=== PATIENT | female | born 1990 | race Two or more races ===

== ENCOUNTER 2019-01-15 09:16 | Outpatient (CLI) | payer OTHER | END 2019-01-15 09:26 | disposition home or self-care (01) | LOC: SONOGRAMA 09:16 → MAMO-SONO 09:45 | DX: Z34.02 Encounter for supervision of normal first pregnancy, second trimester (principal) ==

== ENCOUNTER 2019-03-28 13:36 | Outpatient (CLI) | payer OTHER | END 2019-03-28 13:40 | disposition home or self-care (01) | LOC: SONOGRAMA 13:36 | DX: Z34.00 Encounter for supervision of normal first pregnancy, unspecified trimester (principal) ==

== ENCOUNTER 2019-04-11 11:58 | Inpatient (IN) | payer OTHER ==
[~2019-04-11] VITALS: Ht 152.4 cm; Wt 244.0 kg
[2019-04-19] MEDS ORDERED: PRENATABS FA T1 EACH PO (08:46)
[2019-04-19] MEDS ORDERED: VITAMIN D400 UNI2 PO (08:47)
[2019-04-19] MEDS ORDERED: FOLIC ACID0.4 MG PO (08:47)
[2019-04-19] MEDS ORDERED: PNEU16DI2 (08:48)
== END 2019-04-26 15:09 | disposition home or self-care (01) | DRG 788 ==
LOC: OB/GYN 04-18 11:45 → LDR 04-19 06:41 → OB/GYN 04-19 06:41
PROVIDERS: ADMIT Obstetrics & Gynecology
PROC: 3E0P7VZ Introduction of Hormone into Female Reproductive, Via Natural or Artificial Opening (ICD-10-PCS; 2019-04-19)
PROC: 3E033VJ Introduction of Other Hormone into Peripheral Vein, Percutaneous Approach (ICD-10-PCS; 2019-04-19)
PROC: 4A1HXCZ Monitoring of Products of Conception, Cardiac Rate, External Approach (ICD-10-PCS; 2019-04-19)
PROC: 10D00Z1 Extraction of Products of Conception, Low, Open Approach (ICD-10-PCS; principal; 2019-04-19 22:15)
DX: O82 Encounter for cesarean delivery without indication (principal); O65.4 Obstructed labor due to fetopelvic disproportion, unspecified; G97.1 Other reaction to spinal and lumbar puncture; Z3A.38 38 weeks gestation of pregnancy; Z37.0 Single live birth; O61.0 Failed medical induction of labor